=== PATIENT | female | born 1945 | race Caucasian/White ===

== ENCOUNTER 2017-10-15 09:58 | Inpatient (IN) | payer OTHER ==
[~2017-10-15] VITALS: Ht 157.5 cm; Wt 65.8 kg
--- NOTE | 2017-10-15 10:58 | ED CARDIAC/CP/PALPITATIONS ---
History of Present Illness General Chief Complaint: Chest Pain Stated Complaint: CP Source: patient, family, old records Exam Limitations: no limitations Vital Signs & Intake/Output Vital Signs & Intake/Output Vital Signs Date Time Temp Pulse Resp B/P B/P Pulse O2 O2 Flow FiO2 Mean Ox Delivery Rate 10/15 1611 59 17 118/74 99 Room Air 10/15 1511 97.3 62 17 130/82 100 Room Air 10/15 1424 97 Room Air 10/15 1406 98.7 54 20 144/82 98 Room Air 03/ 1355 98.2 70 20 182/86 03/ 1321 182/86 10/15 1233 180/96 03/ 1212 98.2 70 20 212/98 03/ 1141 212/98 03/ 1140 98.2 70 20 180/102 100 Room Air 10/15 1010 97.6 72 20 202/102 98 Room Air Allergies Coded Allergies: No Known Allergies (10/15/17) Reconcile Medications Calcium Carbonate/Vitamin D3 (Calcium 500 + D Tablet) 500 MG-400 TABLET 1 TAB PO BID SUPPLEMENT (Reported) Cyanocobalamin (Vitamin B-12) 1,000 MCG TABLET 1 TAB PO DAILY VITAMIN SUPPORT (Reported) [place]-3 Fatty Acids/Fish Oil (Fish Oil 1,000 MG Capsule) 340 MG-1,000 MG CAPSULE 1 CAP PO DAILY SUPPLEMENT (Reported) Triage Note: PT STATES SHE HAD A CHEST DISCOMFORT, BURNING SENSATION TODAY. STATES SHE WAS SITTING AT HER DESK WHEN IT HAPPENED. STATES SHE HAS BEEN EXPERIENCING BURNING AND BURPING MORE FREQUENTLY FOR THE PAST WEEK. TODAY IT WAS STRONGER. PT DENIES SOB Triage Nurses Notes Reviewed? yes Onset: Abrupt Duration: day(s): (1), constant Timing: recent history Quality/Severity: moderate, aching Radiation: no radiation Activities at Onset: none Nitro Today/Relief: no nitro taken today Aspirin Today: 325 mg x 1, provided by ED Associated Symptoms: DENIES HPI: 72-year-old female with no medical history presents with her family for evaluation complaining of one-week history of central nonradiating chest pressure and burning sensation that was worse this morning while at work. She states that she recently began a workout regimen and has been noticing while walking. She denies radiation of pain shortness of breath pain with inspiration leg swelling of abdominal pain nausea vomiting diarrhea. She is not taken anything for her symptoms. Fever chills cough. No blurry vision headache numbness tingling, no palpitations dizziness lightheadedness. No family history of sudden cardiac disease she does not smoke (Jose D Mae) Past History Travel History Traveled to [place] past 21 day No Medical History Any Pertinent Medical History? see below for history Surgical History Surgical History: nephrectomy Psychosocial History What is your primary language Belarusian Tobacco Use: Never used ETOH Use: denies use Illicit Drug Use: denies illicit drug use Family History Hx Contributory? No (Jose D Mae) Review of Systems Review of Systems Constitutional: Reports: see HPI. Comments Review of systems: See HPI, All other systems negative. Constitutional, no chills no fever, no malaise HEENT: no sore throat no congestion Cardiovascular: chest pain Skin: no rashes, no change in skin Respiratory: No dyspnea no cough no sputum GI: No nausea no vomiting, no diarrhea, : No dysuria No hematuria, no frequency Muscle skeletal: No joint pain, no back pain Neurologic: , no headache Heme/endocrine: No bruising Immunology: No lymphadenopathy (Jose D Mae) Physical Exam Physical Exam General Appearance: no apparent distress, alert, awake Cardiovascular: regular rate/rhythm Comments: Well-developed well-nourished person in no acute distress HEENT: Normal EENT exam; PERRL, EOMI, no pappiledema. HEAD is atraumatic. moist mucous membranes. Neck: Supple, normal range of motion Back: Full range of motion Cardiovascular: Regular rate and rhythms no murmurs rubs or gallops, normal JVP Respiratory: Chest nontender.There were no bony deformities, no asymmetry. No respiratory distress. Patient speaking in full complete sentences. Breath sounds clear to auscultation bilaterally: NO W/R/R Abdomen: Soft, nontender nondistended, no appreciable organomegaly. Normal bowel sounds. No rebound/guarding, Rectal: Heme negative stool. Extremity: No edema, full range of motion of extremities Neuro: Alert oriented x3, motor sensory normal, cranial nerves II through XII grossly intact. There were no obvious focal neurologic abnormalities. Skin: No appreciable rash on exposed skin, skin is warm and dry. Psych: Mood and affect is normal, memory and judgment is normal. Core Measures ACS in differential dx? Yes CVA/TIA Diagnosis No Sepsis Present: No Sepsis Focused Exam Completed? No (Goyo HERRERA,Jose D) Progress Differential Diagnosis: AMI, aortic dissection, atrial fibrillation, cholecystitis, myocarditis, pulmonary embolism, PVCs/PACs, unstable angina, V- fib/V-Tach Plan of Care: Orders Procedure Date/time Status CBC WITHOUT DIFFERENTIAL 10/16 0500 Active BASIC ELECTROLYTES PLUS BUN&CR 10/16 0500 Active TROPONIN LEVEL 10/16 0000 Active EKG 10/16 0000 Active Heart Healthy Diet 10/15 D Active TROPONIN LEVEL 10/15 1800 Active EKG 10/15 1800 Active URINALYSIS 10/15 1704 Active URINE DRUGS OF ABUSE 10/15 1610 Active URINE LYTES, SPOT 10/15 1610 Active Pathway - chart 10/15 1505 Active House Staff 10/15 1505 Active Patient Data 10/15 1505 Active Code Status 10/15 1505 Active ECHOCARDIOGRAM 10/15 1420 Active Add-on Test (ER Only) 10/15 1405 Active Patient Data 10/15 1356 Active Admit to inpatient 10/15 1332 Active THYROID STIMULATING HORMONE 10/15 1150 Active PARTIAL THROMBOPLASTIN TIME 10/15 1150 Complete PHOSPHORUS 10/15 1150 Active LIPID PANEL 10/15 1150 Active GLYCOSYLATED HGB 10/15 1150 Active D-DIMER 10/15 1150 Complete Telemetry/Manager Voice 10/15 1055 Active TROPONIN LEVEL 10/15 1055 Active PROTHROMBIN TIME 10/15 1055 Complete COMPREHENSIVE METABOLIC PANEL 10/15 1055 Active CBC WITHOUT DIFFERENTIAL 10/15 1055 Complete EKG 10/15 1000 Active Lab Add-on Test 10/15 UNK Active VTE Mechanical Prophylaxis 10/15 UNK Active Vital Signs 10/15 UNK Active Intake & Output 10/15 UNK Active Activity/Ambulation 10/15 UNK Active Current Medications Sig/Atilio Start time Last Medication Dose Stop Time Status Admin Aspirin 81 MG DAILY 10/16 1000 AC (Aspirin) Clopidogrel Bisulfate 75 MG DAILY 10/16 1000 AC (Plavix) Nitroglycerin 0.5 GM Q6 10/15 1800 AC (Nitro-Bid) Atorvastatin Calcium 80 MG 1700 10/15 1700 AC (Lipitor) Acetaminophen 650 MG Q6P PRN 10/15 1515 AC (Tylenol) Acetaminophen 1,000 MG Q6P PRN 10/15 1515 AC (Ofirmev) Morphine Sulfate 2 MG Q4P PRN 10/15 1515 AC (MORPHINE SULFATE) Ondansetron HCl 4 MG Q8P PRN 10/15 1515 AC (Zofran) Heparin Sodium/ 25,000 UNIT Q24H 10/15 1345 AC 10/15 Dextrose 10/16 1344 1417 (Heparin) Dextrose/Water 500 ML (D5W) Aspirin 81 MG ONCE ONE 10/15 1115 CAN (Aspirin) 10/15 1116 Laboratory Tests 10/15/17 1150: D-Dimer High Sensitivty Cancelled 10/15/17 1150: Anion Gap 13, Estimated GFR > 60, BUN/Creatinine Ratio 22.9, Glucose 95, Hemoglobin A1c Pending, Calcium 10.9 H, Phosphorus Pending, Total Bilirubin 0.6 , AST 36, ALT 22, Alkaline Phosphatase 76, Troponin I 0.42 *H, Total Protein 7.9 , Albumin 4.6, Globulin 3.3, Albumin/Globulin Ratio 1.4, Triglycerides 207 H, Cholesterol 213 H, LDL Cholesterol, Calc 117, HDL Cholesterol 55, Cholesterol/ HDL Ratio 4, TSH Pending, PT 10.7, INR 0.98, APTT 35, D-Dimer High Sensitivty < 200, CBC w Diff NO MAN DIFF REQ, RBC 4.90, MCV 88.4, MCH 29.7, MCHC 33.6, RDW 13.4, MPV 8.9, Gran % 62.7, Lymphocytes % 31.7, Monocytes % 4.4, Eosinophils % 0.6, Basophils % 0.6, Absolute Granulocytes 5.4, Absolute Lymphocytes 2.7, Absolute Monocytes 0.4, Absolute Eosinophils 0.1, Absolute Basophils 0.1 PT RESTING IN NAD, MED WITH ASA 325MG PO, patient denies pain. 1310 and discussed with the patient and her family at length all of her lab results and troponin level. She denies pain call placed to cardiology case discussed with Dr. Menard case d/w dr carrasquillo, plavix load, heparin gtt, nitro ordered, joann will be admitted to icu, Discussed with the patient and her family at the plan of care and lab results in agreement with plan and admission to the ICU she currently denies any symptoms at this time Diagnostic Imaging: Viewed by Me: Radiology Read. Discussed w/RAD: Radiology Read. Radiology Impression: PATIENT: JOANN HARRISON PRESENT AGE: 72 PATIENT ACCOUNT NO: [id number] : 44 LOCATION: [facility] ORDERING PHYSICIAN: Jose D HERRERA SERVICE DATE: 10/15/17 EXAM TYPE: RAD - XRY- PORTABLE CHEST XRAY EXAMINATION: XR PORTABLE CHEST CLINICAL INFORMATION: Chest pain. COMPARISON: None TECHNIQUE: Portable frontal view of the chest was obtained. FINDINGS: The cardiac silhouette is normal in size. There is atherosclerotic calcification of the aorta. There is no lobar consolidation. No pneumothorax or pleural effusion. No acute osseous abnormality. IMPRESSION: No acute cardiopulmonary disease. DICTATED BY: Feliz Powell MD DATE/TIME DICTATED :10/15/171233 DIP GUIDER STOVES:FIDEL DATE/TIME TRANSCRIBED:10/15/171233 CONFIDENTIAL, DO NOT COPY WITHOUT APPROPRIATE AUTHORIZATION. < Electronically signed in Other Vendor System> SIGNED BY: Feliz Powell MD 10/15/171238 Initial ED EKG: normal intervals, normal p-waves, normal QRS complex, normal sinus rhythm Rhythm Strip: normal sinus rhythm (Jose D Mae) Departure Departure Time of Disposition: 3 Disposition: STILL A PATIENT Condition: Stable Clinical Impression Primary Impression: NSTEMI (non-ST elevated myocardial infarction) Referrals: Jadon Wheatley MD (PCP/Family) Departure Forms: Customer Survey General Discharge Information Admission Note Spoke With: Wiley ROJAS PHD,Naman Kc Documentation of Exam: Documentation of any treatments & extenuating circumstances including Concerns Regarding Discharge (functional status, medication knowledge or non-compliance, living conditions, etc.) that warrant an admission rather than observation cardiology consultation labs troponin echocardiogram premature discharge would medically harmful (Jose D Mae) PA/CHICKEN STUFFER Co-Sign Statement Statement: ED Attending supervision documentation- x I saw and evaluated the patient. I have also reviewed all the pertinent lab results and diagnostic results. I agree with the findings and the plan of care as documented in the PA's/CHICKEN STUFFER's documentation. CP, + troponin, NSTEMI [] I have reviewed the ED Record and agree with the PA's/CHICKEN STUFFER's documentation. [] Additions or exceptions (if any) to the PAs/CHICKEN STUFFER's note and plan are summarized below: [] (Derian ROJAS,Dennis) Critical Care Note Critical Care Note Critical Care Time: 30-74 min (Jose D Mae)
[2017-10-15] MEDS ORDERED: VITAMIN B-121000 MC3 PO (11:51)
[2017-10-15] MEDS ORDERED: CALCIUM 500 +1 EAC5 PO (11:51)
[2017-10-15] MEDS ORDERED: FISH OIL 1,0001 EACH PO (11:52)
[2017-10-15 12:14] LABS: ABSOLUTE BASOPHIL COUNT 0.1 /CUMM (0.0-0.2); ABSOLUTE EOSINOPHIL COUNT 0.1 /CUMM (0.0-0.7); ABSOLUTE GRANULOCYTE CT 5.4 /CUMM (1.4-6.5); ABSOLUTE LYMPH COUNT 2.7 /CUMM (1.2-3.4); ABSOLUTE MONOCYTE COUNT 0.4 /CUMM (0.10-0.60); BASOPHIL % 0.6 % (0.0-2.0); EOSINOPHIL % 0.6 % (0-5); GRANULOCYTE % 62.7 % (42.2-75.2); HEMATOCRIT 43.3 % (37-47); MEAN CORPUSCULAR HGB 29.7 PG (27.0-31.0); MEAN CORPUSCULAR HGB CONC 33.6 G/DL (33.0-37.0); MEAN CORPUSCULAR VOLUME 88.4 FL (81.0-99.0); MEAN PLATELET VOLUME 8.9 FL (7.4-10.4); PLATELET COUNT 246 /CUMM (130-400); RBC DISTRIBUTION WIDTH 13.4 % (11.5-14.5); WHITE BLOOD CELL COUNT 8.6 /CUMM (4.8-10.8)
[2017-10-15 12:37] LABS: PT 10.7 SEC (9.4-12.5)
--- NOTE | 2017-10-15 12:39 | RADIOLOGY REPORT ---
EXAMINATION: XR PORTABLE CHEST CLINICAL INFORMATION: Chest pain. COMPARISON: None TECHNIQUE: Portable frontal view of the chest was obtained. FINDINGS: The cardiac silhouette is normal in size. There is atherosclerotic calcification of the aorta. There is no lobar consolidation. No pneumothorax or pleural effusion. No acute osseous abnormality. IMPRESSION: No acute cardiopulmonary disease.
--- NOTE | 2017-10-15 14:15 | History & Physical ---
General Information and HPI MD Statement: I have seen and personally examined JOANN HARRISON and documented this H&P. The patient is a 72 year old F who presented with a patient stated chief complaint of [Chest pain]. Source of Information: patient, family, old records Exam Limitations: no limitations History of Present Illness: This is a 72 yo female with no known past medical history but pertient surgical history for right nephrectomy for "swelling" over 30 yrs ago, who comes in for CC of chest pain. Per patient this AM around 8-8:30 AM she had l. sided 7/10 non radiating chest pain that was described as "an annoying ache" which was associated with dizziness and lasted for 30min. She has never had this type of pain to this intensity before. She does endorse some intermittent chest pain over the past week or two. It has been increasing in frequency as she had one episode on Sun and at least 2-3 more episodes on Sunday. These episodes were fleeting and not associated with exertion. She did get sublingual nitro in hospital today but she said her chest pain went away before administration of nitro so she couldn't say if it alleviated her pain. She does endorse worsening heart burn for the past week and describes it as a burining epigastric pain. She initially confused her chest pain over the weekend as epigastric pain and attempted to take tums to alleviate the discomfort. She had one episode of palpitations about 3-4 weeks ago associated with an emotional disturbance. She recently began going to the gym one month ago and has noted only one episode of chest pain when she over exerted herself on the treadmill. Otherwise at her normal brisk walk she has not noted chest pain. She does not take any medications other than vitamins. Denies drinking, smoking or IVDA. No fam hx of CAD or suden cardiac . Surgical hx pertienet for nephrectomy in her thirties. Denies LAO, N, V, D, abd pain, palpitations, SOB, change in vision, swelling in LE or orthopnea. Allergies/Medications Allergies: Coded Allergies: No Known Allergies (10/15/17) Home Med list Calcium Carbonate/Vitamin D3 (Calcium 500 + D Tablet) 500 MG-400 TABLET 1 TAB PO BID SUPPLEMENT (Reported) Cyanocobalamin (Vitamin B-12) 1,000 MCG TABLET 1 TAB PO DAILY VITAMIN SUPPORT (Reported) [place]-3 Fatty Acids/Fish Oil (Fish Oil 1,000 MG Capsule) 340 MG-1,000 MG CAPSULE 1 CAP PO DAILY SUPPLEMENT (Reported) Compliance With Home Meds: GOOD Past History Travel History Traveled to [place] past 21 day No Surgical History Surgical History: nephrectomy Past Family/Social History Psychosocial History ETOH Use: denies use Illicit Drug Use: denies illicit drug use Review of Systems Review of Systems Constitutional: Denies: chills, fever, malaise, weakness. EENTM: Denies: blurred vision, double vision, visual changes, ear pain. Cardiovascular: Reports: chest pain. Denies: edema, orthopena, palpitations, peripheral edema. Respiratory: Denies: cough, hemoptysis, short of breath. GI: Denies: abdominal pain, distention, nausea, vomiting. Genitourinary: Denies: discharge, pain. Musculoskeletal: Denies: back pain. Exam & Diagnostic Data Last 24 Hrs of Vital Signs/I&O Vital Signs Date Time Temp Pulse Resp B/P B/P Pulse O2 O2 Flow FiO2 Mean Ox Delivery Rate 10/15 1424 97 Room Air 03/ 1406 98.7 54 20 144/82 98 Room Air 03/ 1355 98.2 70 20 182/86 03/05 1321 182/86 03/05 1233 180/96 03/05 1212 98.2 70 20 212/98 03/05 1141 212/98 03/05 1140 98.2 70 20 180/102 100 Room Air 03/05 1010 97.6 72 20 202/102 98 Room Air Intake & Output / 1600 / 0800 03/ 0000 Intake Total 60 Output Total Balance 60 Intake, IV 60 Patient 64.41 kg Weight Weight Reported by Patient Measurement Method Physical Exam General Appearance Alert, Oriented X3, Cooperative, No Acute Distress Skin No Significant Lesion HEENT Atraumatic, PERRLA, EOMI, Mucous Membr. moist/pink Neck Supple, NO JVD noted Cardiovascular grade 2 systolic murmurat RUSB Lungs Clear to Auscultation, Normal Air Movement Abdomen Soft, No Tenderness, has old scar on r. side of abdomen Neurological Normal Speech Extremities No Edema Last 24 Hrs of Labs/Marvel: Laboratory Tests 10/15/17 1150: D-Dimer High Sensitivty Cancelled 10/15/17 1150: Anion Gap 13, Estimated GFR > 60, BUN/Creatinine Ratio 22.9, Glucose 95, Calcium 10.9 H, Total Bilirubin 0.6, AST 36, ALT 22, Alkaline Phosphatase 76, Troponin I 0.42 *H, Total Protein 7.9, Albumin 4.6, Globulin 3.3, Albumin/Globulin Ratio 1.4, PT 10.7, INR 0.98, APTT 35, D-Dimer High Sensitivty < 200, CBC w Diff NO MAN DIFF REQ, RBC 4.90, MCV 88.4, MCH 29.7, MCHC 33.6, RDW 13.4, MPV 8.9, Gran % 62.7, Lymphocytes % 31.7, Monocytes % 4.4, Eosinophils % 0.6, Basophils % 0.6, Absolute Granulocytes 5.4, Absolute Lymphocytes 2.7, Absolute Monocytes 0.4, Absolute Eosinophils 0.1, Absolute Basophils 0.1 Assessment/Plan Assessment: This is a 72 yo female with no known past medical history but pertient surgical history for right sided nephrectomy for "swelling" over 30 yrs ago, who comes in for CC of chest pain. Pt was found to be hypertensive up to 202/102 with elevated trop of .42 and EKG with diffuse ST depressions. Pt does not have any previous cardiac history and describes an atypical chest pain but with evidence of myocardia ischemia. Suspect that her hypertension is causing increased afterload and decreased coronary artery perfusion thereby causing demand ischemia. JIGNESH score for NSTEMI is 5 suggesting 26.2% 14-day risk of /recurrent PA or urgent revascularization. Etiology of hypertension is unclear as pt states she is compliant with medical care and never recieved dx of htn. Given nephrectomy will also have to consider renovascular etiology or worsening of undiagnosed essential hypertension. Will admit to ICU for further work up and management. PLAN 1. Hypertensive Emergency: Pt meets criteria given chest pain with BP 202/102 and elevated troponin as evidence of end organ damage. Pt does not have prev dx of htn. DDX: renovascular etiology given prev hx of nephrectomy, or progression of previously undiagnosed essential HTN. Pt got IV lopressor and IV labetalol in ED with BP dropping to 144/82. At this time will avoid addl' agents as too precipitous of a drop may not be tolerated very well. Pt is currently not on any PO anti-hypertensive regimen. Will continue to monitor her Bp and manage accordingly. * Will decrease MAP around 25% and DBP goal <110 in the next few hours. * Monitor urine output * Check urine lytes * Utox * Check TSH NSTEMI: JIGNESH score 5 suggesting 26.2% 14-day risk of /recurrent PA or urgent revascularization. Pt has elevated trops and ST segment depression. Going by history her pain does not sound classically exertional and pt doesn't have any known classic risk factors of CAD. Will do further work up. * Heparin drip * ASA 325 once and 81 daily * Plavix 75 * EKG and Trop at 6pm and midnight * Echocardiogram * Cholesterol planel * Hi-intensity statin onboard as LFT WNL * HBA1C Hypercalcemia:Her Ca on admission was 10.9. Pt states that she takes two supplements every day. Will hold Ca supplementation. Unsure if renal etiology associate with her hypercal. * Check PTH * Hold home supplements FC HEART HEALTHY DIET HEPARIN PPX As Ranked By This Provider Problem List: 1. NSTEMI (non-ST elevated myocardial infarction) Core Measures/Misc (04/29) Acute Coronary Syndrome ACS Diagnosis: Yes Congestive Heart Failure Congestive Heart Failure Diagnosis No Cerebrovascular Accident CVA/TIA Diagnosis: No VTE (View Protocol) VTE Risk Factors Acute Medical Illness No Mechanical VTE Prophylaxis d/t N/A MechProphylax Ordered No VTE Pharm Prophylaxis d/t NA PharmProphylax ordered Sepsis (View protocol) Sepsis Present: No
[2017-10-15 14:16] LABS: PTT 35 SEC (25-37)
--- NOTE | 2017-10-15 18:56 | Cons- Cardiology ---
General Information and HPI Consulting Request Date of Consult: 10/15/17 Requested By: ER History of Present Illness: Joann is a 72 year old female with history of prior kidney resection who presents for evaluation of chest pain. At her baseline, she is very active and routinely walks briskly on a treadmill. Over the past few days this patient has noted exertional chest discomfort on the treadmill. This morning, after arriving at work, she noted a chest discomfort with mild activity such as walking. The discomfort is described as a moderate chest tightness with some radiation to her right shoulder and possibly to her back. The discomfort is associated with diaphoresis, shortness of breath and lightheadedness. She also recalls one episode of palptiations. At its most severe this discomfort lasted about 10 minutes but then lingered on a while longer at a more mild level. At present, the patient is completely comfortable. Cardiac enzymes show an elevated troponin and the patient has ischemic ST depressions on her ECG. The patient was severely hypertensive upon admission. Allergies/Medications Allergies: Coded Allergies: No Known Allergies (10/15/17) Home Med List: Calcium Carbonate/Vitamin D3 (Calcium 500 + D Tablet) 500 MG-400 TABLET 1 TAB PO BID SUPPLEMENT (Reported) Cyanocobalamin (Vitamin B-12) 1,000 MCG TABLET 1 TAB PO DAILY VITAMIN SUPPORT (Reported) [place]-3 Fatty Acids/Fish Oil (Fish Oil 1,000 MG Capsule) 340 MG-1,000 MG CAPSULE 1 CAP PO DAILY SUPPLEMENT (Reported) Review of Systems Review of Systems: A twelve point review of systems is unremarkable. Past History Travel History Traveled to [place] past 21 day No Medical History Cardiovascular: hypertension Surgical History Surgical History: nephrectomy Family History Family History Reviewed? No premature CAD. Mother: of pancreatic cancer. Father: with dementia and possible Parkinson's disease Psychosocial History Smoking Status: Former Smoker (Quit over 30 years ago) ETOH Use: denies use Illicit Drug Use: denies illicit drug use Exam & Diagnostic Data Vital Signs and I&O Vital Signs Date Time Temp Pulse Resp B/P B/P Pulse O2 O2 Flow FiO2 Mean Ox Delivery Rate 10/15 1738 110/76 10/15 1611 59 17 118/74 99 Room Air 10/15 1511 97.3 62 17 130/82 100 Room Air 10/15 1424 97 Room Air 10/15 1406 98.7 54 20 144/82 98 Room Air 10/15 1355 98.2 70 20 182/86 03/ 1321 182/86 03/ 1233 180/96 03/ 1212 98.2 70 20 212/98 03/ 1141 212/98 03/ 1140 98.2 70 20 180/102 100 Room Air 03/ 1010 97.6 72 20 202/102 98 Room Air Intake & Output 10/15 1600 10/15 0800 10/15 0000 / 1600 10/14 0800 10/14 0000 Intake Total 60 Output Total Balance 60 Intake, IV 60 Patient 142 lb Weight Weight Reported by Patient Measurement Method Physical Exam: General: WD/WN female in NAD; alert and oriented x 3 HEENT: NC/AT, PERRL, EOMI Neck: no JVD, no carotid bruits Heart: RRR with 2/6 systolic murmur Lungs: clear bilaterally Abdomen: soft, NT, +ve bowel sounds Extremities: no edema Assessment/Plan Assessment/Plan * This patient has evidence of a NSTEMI that is most likely related to coronary artery disease but may possibly be due to a severe hypertensive excursion. We will begin full anticoagulation with IV heparin, aspirin 325mg daily and Plavix 75mg daily after loading with 300mg. Begin Atorvastatin 80mg daily and NTG paste 1/2 inch Q 6 hours or as tolerated by blood pressure. Continue supplemental oxygen. Follow cardiac enzymes until they peak. If recurrent chest pain we will have a low threshold for emergent cardiac catheterization. * Hypertension. This patient responded well to labetolol in regard to her blood pressure which gave a greater than desired acute blood pressure reduction. Begin Metoprolol 25mg BID which will not have the alpha blocking effect of that labetolol has and should help to control her heart rate without excessive blood pressure drop. The patient should be on a low sodium diet. Obtain a renal ultrasound. The patient has a unilateral kidney. * Obtain an echocardiogram. Consult Acknowledgment - Thank you for your consult request.
[2017-10-15 19:00] VITALS: BP 160/90
[2017-10-15 22:12] LABS: PTT 84 SEC (25-37)
[2017-10-16] VITALS: BP 100/60
--- NOTE | 2017-10-16 03:02 | Event Note ---
Event Note Event Note: S: Rising troponins B: Troponins rising from 2.10 to 3.99 A/R: Contacted Dr. Jama regarding rising troponins. Troponins patti from 2.10 to 3.99. He suggested the keep the patient NPO as prepartion for possible cardiac catherization tomorrow.
[2017-10-16 06:31] LABS: ABSOLUTE BASOPHIL COUNT 0 /CUMM (0.0-0.2); ABSOLUTE EOSINOPHIL COUNT 0.1 /CUMM (0.0-0.7); ABSOLUTE LYMPH COUNT 3.1 /CUMM (1.2-3.4); ABSOLUTE MONOCYTE COUNT 0.6 /CUMM (0.10-0.60); BASOPHIL % 0.5 % (0.0-2.0); EOSINOPHIL % 0.7 % (0-5); GRANULOCYTE % 61.4 % (42.2-75.2); MEAN CORPUSCULAR HGB 29.6 PG (27.0-31.0); MEAN CORPUSCULAR HGB CONC 33.9 G/DL (33.0-37.0); MEAN CORPUSCULAR VOLUME 87.2 FL (81.0-99.0); MEAN PLATELET VOLUME 8.6 FL (7.4-10.4); PLATELET COUNT 220 /CUMM (130-400); RBC DISTRIBUTION WIDTH 13.3 % (11.5-14.5); RED BLOOD CELL CT 4.29 /CUMM (4.20-5.40); WHITE BLOOD CELL COUNT 9.8 /CUMM (4.8-10.8)
[2017-10-16 06:35] LABS: HEMATOCRIT 37.4 % (37-47)
--- NOTE | 2017-10-16 07:55 | Discharge Summary ---
Visit Information Visit Dates Admission Date: 10/15/17 Discharge Date: 10/16/2017 Hospital Course Course Attending Physician: Dr. Jama Primary Care Physician: Corry ROJAS,Jadon Juarez Consulting Request: Consulting Specialty: Cardiology Hospital Course: This is a 72 yo relatively active female with no known PMH but surgical hx of nephrectomy over 30 yrs ago who comes in for CC chest pain. Initially CP was associated with exertion but has been occurring more frequently even at rest. On day of admission she had 7/10 non radiating l. sided, non-reproducible chest pain associated for 30 minutes with dizziness and diaphoresis. She does not take any medications other than vitamins. Denies drinking, smoking or IVDA. No fam hx of CAD or suden cardiac . Surgical hx pertinent for nephrectomy in her thirties. Denies LAO, N, V, D, abd pain, palpitations, SOB, change in vision, swelling in LE or orthopnea. She does not note any difference in symptoms with nitro. During ED work up she was found to be hypertensive up to 202/102 with elevated trop of .42 and EKG with diffuse ST depressions. JIGNESH score for NSTEMI is 5 suggesting 26.2% 14-day risk of /recurrent AZ or urgent revascularization. Overnight her troponin continued to trend upward and went from .42-->2.10-->3.99 --> 3.64. She denied any further episdoes of chest pain overnight. Seen for the following problems. 1. Hypertensive Emergency: Pt meets criteria given chest pain with BP 202/102 and elevated troponin as evidence of end organ damage. Pt does not have prev dx of htn. DDX: renovascular etiology given prev hx of nephrectomy, or progression of previously undiagnosed essential HTN. Pt is currently not on any PO anti-hypertensive regimen. Utox negative. UA negative. TSH WNL. Urine sodium elevated. * started on lopressor 25 mg po bid NSTEMI: JIGNESH score 5 suggesting 26.2% 14-day risk of /recurrent AZ or urgent revascularization. Pt has elevated trops and ST segment depression. * Started on Heparin drip * ASA 325 once and 81 daily * Plavix 300 load and 75mg daily * Cholesterol planel shows Tchol 213,TG 207, LDL 117. Hi-intensity statin onboard as LFT WNL * HBA1C PENDING * Echocardiogram PENDING Hypercalcemia:Her Ca on admission was 10.9. Pt states that she takes two supplements every day. Will hold Ca supplementation. Unsure if renal etiology associate with her hypercal. * PTH pending * Hold home supplements FC NPO HEPARIN DRIP FOR PPX Allergies: Coded Allergies: No Known Allergies (10/15/17) Pertinent Lab Results: Laboratory Tests 10/16/17 0600: Troponin I Cancelled 10/16/17 0600: Anion Gap 10, Estimated GFR > 60, BUN/Creatinine Ratio 21.3, Troponin I 3.64 *H, PTH Intact Pending, CBC w Diff NO MAN DIFF REQ, RBC 4.29, MCV 87.2, MCH 29.6, MCHC 33.9, RDW 13.3, MPV 8.6, Gran % 61.4, Lymphocytes % 31.5, Monocytes % 5.9, Eosinophils % 0.7, Basophils % 0.5, Absolute Granulocytes 6.0, Absolute Lymphocytes 3.1, Absolute Monocytes 0.6, Absolute Eosinophils 0.1, Absolute Basophils 0 10/16/17 0000: Troponin I 3.99 *H 10/15/172119: Urine Color YEL, Urine Clarity CLEAR, Urine pH 7.0, Ur Specific Adel 1.015, Urine Protein NEG, Urine Ketones NEG, Urine Nitrite NEG, Urine Bilirubin NEG, Urine Urobilinogen 0.2, Ur Leukocyte Esterase NEG, Ur Microscopic EXAM NOT REQUIRED, Urine Hemoglobin NEG, Urine Glucose NEG 10/15/172119: APTT 84 H, Urine Opiates Screen < 100, Methadone Screen < 40, Barbiturate Screen < 60, Ur Phencyclidine Scrn < 6.00, Amphetamines Screen < 100, U Benzodiazepines Scrn < 85, Urine Cocaine Screen < 50, Urine Cannabis Screen < 5.00, Ur Random Creatinine 53.6, Ur Random Sodium 100 H, Ur Random Potassium 35.6, Fraction Sodium Excret 0.9 10/15/17 1801: Troponin I 2.10 *H 10/15/17 1150: D-Dimer High Sensitivty Cancelled 10/15/17 1150: Anion Gap 13, Estimated GFR > 60, BUN/Creatinine Ratio 22.9, Glucose 95, Hemoglobin A1c Pending, Calcium 10.9 H, Phosphorus 3.5, Total Bilirubin 0.6, AST 36, ALT 22, Alkaline Phosphatase 76, Troponin I 0.42 *H, Total Protein 7.9, Albumin 4.6, Globulin 3.3, Albumin/Globulin Ratio 1.4, Triglycerides 207 H, Cholesterol 213 H, LDL Cholesterol, Calc 117, HDL Cholesterol 55, Cholesterol/ HDL Ratio 4, TSH 2.390, PT 10.7, INR 0.98, APTT 35, D-Dimer High Sensitivty < 200, CBC w Diff NO MAN DIFF REQ, RBC 4.90, MCV 88.4, MCH 29.7, MCHC 33.6, RDW 13.4, MPV 8.9, Gran % 62.7, Lymphocytes % 31.7, Monocytes % 4.4, Eosinophils % 0.6, Basophils % 0.6, Absolute Granulocytes 5.4, Absolute Lymphocytes 2.7, Absolute Monocytes 0.4, Absolute Eosinophils 0.1, Absolute Basophils 0.1 Vital Signs Date Time Temp Pulse Resp B/P B/P Pulse O2 O2 Flow FiO2 Mean Ox Delivery Rate 10/16 0400 94 Room Air / 0000 95 Room Air / 0000 98.6 56 18 100/60 95 Room Air 03/05 1900 96 Room Air 03/05 1900 99.5 64 16 160/90 96 Room Air 03/05 1738 110/76 03/05 1611 59 17 118/74 99 Room Air 03/05 1511 97.3 62 17 130/82 100 Room Air 03/05 1424 97 Room Air 03/05 1406 98.7 54 20 144/82 98 Room Air 03/05 1355 98.2 70 20 182/86 03/05 1321 182/86 03/05 1233 180/96 03/05 1212 98.2 70 20 212/98 03/05 1141 212/98 03/05 1140 98.2 70 20 180/102 100 Room Air 03/05 1010 97.6 72 20 202/102 98 Room Air Disposition Summary Disposition Principal Diagnosis: NSTEMMI Additional Diagnosis: HYPERTENSIVE EMERGENCY Discharge Disposition: other general hospital Discharge Instructions General Discharge Information Code Status: Full Code Patient's Diet: NPO Patient's Activity: TOLERATED Follow-Up Instructions/Appts: FOLLOW UP ECHOCARDIOGRAM AND AN HBA1C Medications at Discharge Discharge Medications: Stop taking the following medications: Calcium Carbonate/Vitamin D3 (Calcium 500 + D Tablet) 500 MG-400 TABLET ORAL TWICE DAILY Continue taking these medications: Cyanocobalamin (Vitamin B-12) 1,000 MCG TABLET 1 Tablet ORAL DAILY [place]-3 Fatty Acids/Fish Oil (Fish Oil 1,000 MG Capsule) 340 MG-1,000 MG CAPSULE 1 Capsule ORAL DAILY Start taking the following new medications: Clopidogrel Bisulfate (Plavix) 75 MG TABLET 75 Milligram ORAL DAILY Qty = 30 No Refills Atorvastatin Calcium (Atorvastatin Calcium) 80 MG TABLET 80 Milligram ORAL 5 PM Qty = 30 No Refills Nitroglycerin (Nitro-Bid) 2 % OINT...G. 0.5 Gram On the skin EVERY SIX HOURS as needed for CHEST PAIN Qty = 3 No Refills Metoprolol Tartrate (Metoprolol Tartrate) 25 MG TABLET 1 Tablet ORAL TWICE DAILY Qty = 60 No Refills Aspirin (Aspirin*) 325 MG TABLET 325 Milligram ORAL DAILY Qty = 30 No Refills Copies To: Corry ROJAS,Jadon Juarez
[2017-10-16 08:00] VITALS: BP 100/56
[2017-10-16] MEDS ORDERED: PLAVIX75 M1 PO (08:00)
[2017-10-16] MEDS ORDERED: METOPROLOL TART25 M1 PO (08:00)
[2017-10-16] MEDS ORDERED: NITRO-BID1 GM TOP (08:00)
[2017-10-16] MEDS ORDERED: ASPIRIN325 M2 PO (08:00)
[2017-10-16] MEDS ORDERED: ATORVASTATIN CA80 M1 PO (08:00)
--- NOTE | 2017-10-16 08:02 | Patient Discharge Instructions ---
Discharge Instructions General Discharge Information You were seen/treated for: CHEST PAIN You had these procedures: TRANSFER FOR CATH Watch for these problems: CHEST PAIN SHORTNESS OF BREATH DIZZINESS Special Instructions: FOLLOW UP WITH DR. JACK Torres Recommended Diet: Heart Healthy Activity Full Activity/No Limits: No Activity Self Limited: Yes Acute Coronary Syndrome Inclusion Criteria At DC or during hospital stay patient has or had the following: ACS DIAGNOSIS Yes Discharge Core Measures Meds if any: Prescribed or Continued at Discharge Meds if any: NOT Prescribed or Continued at Discharge Congestive Heart Failure Inclusion Criteria At DC or during hospital stay patient has or had the following: CHF DIAGNOSIS No Discharge Core Measures Meds if any: Prescribed or Continued at Discharge Meds if any: NOT Prescribed or Continued at Discharge Cerebrovascular accident Inclusion Criteria At DC or during hospital stay patient has or had the following: CVA/TIA Diagnosis No Discharge Core Measures Meds if any: Prescribed or Continued at Discharge Meds if any: NOT Prescribed or Continued at Discharge Venous thromboembolism Inclusion Criteria VTE Diagnosis No Discharge Core Measures - Per Current guidelines, there needs to be overlap - treatment for the first 5 days of Warfarin therapy. - If discharged on Warfarin prior to 5 days of - overlap therapy, the patient will need to be - assessed for post discharge needs including - *Post discharge parental anticoagulation - *Warfarin and/or parental anticoagulation education - *Follow up date to check INR post discharge Meds if any: Prescribed or Continued at Discharge Note: Overlap Therapy is Warfarin and Anticoagulant Meds if any: NOT Prescribed or Continued at Discharge
[2017-10-16 10:06] VITALS: BP 99/52
[2017-10-16 10:47] LABS: PTT 56 SEC (25-37)
--- NOTE | 2017-10-16 19:02 | ECHOCARDIOGRAM REPORT ---
JOANN HARRISON Age: 72 : 1945 Gender: F Exam Date: 10/15/2017 19:21 Exam Location: [facility] Ht (in): 62 Wt (lb): 142 BSA: 1.69 BP: 165 / 95 Ordering Physician: Ashlee Caban MD Referring Physician: Naman Jama MD, PhD Technologist: Sherry Byers [facility] Room Number: 110 Indications: CHEST PAIN Rhythm: Sinus Technical Quality: fair FINDINGS Left Ventricle Normal left ventricular size, wall thickness and systolic function with no obvious regional wall motion abnormalities. Normal left ventricular diastolic filling pattern for age. The ejection fraction is visually estimated at 70%. Right Ventricle The right ventricle is normal in size and function. Right Atrium The right atrium is normal in size. Left Atrium The left atrium is normal in size. The interatrial septum is intact. Mitral Valve The mitral valve demonstrates mild prolapse of the anterior leaflet with normal function. There is mild mitral regurgitation. Aortic Valve Mildly thickened and sclerotic aortic valve without significant stenosis. There is no aortic regurgitation. Tricuspid Valve The tricuspid valve is normal in structure and function. There is trace tricuspid regurgitation. Pulmonary artery systolic pressure is normal. Pulmonic Valve Structurally normal pulmonic valve. There is no pulmonic regurgitation. Pericardium Normal pericardium with trace effusion. No pleural effusion. Great Vessels Normal aortic root dimension. The aortic arch and great vessels are well seen and are normal. CONCLUSIONS 1. Normal EF of 70%. 2. Mild prolapse of anterior mitral valve leaflet with mild mitral regurgitation. 3. Trace tricuspid regurgitation. 4. Trace pericardial effusion. Naman Jama M.D. (Electronically Signed) Final Date: 16 October 2017 19:02 MEASUREMENTS (Male / Female) Normal Values 2D ECHO LV Diastolic Diameter PLAX 4.4 cm 4.2 - 5.9 / 3.9 - 5.3 cm LV Systolic Diameter PLAX 2.3 cm 2.1 - 4.0 cm LV Fractional Shortening PLAX 47.7 % 25 - 46 % LV Ejection Fraction 2D Teich 79.3 % IVS Diastolic Thickness 1.1 cm LVPW Diastolic Thickness 1.1 cm LV Relative Wall Thickness 0.5 RV Internal Dim ED PLAX 3.1 cm 1.9 - 3.8 cm LVOT Diameter 1.8 cm Aortic Root Diameter 2.7 cm LA Systolic Diameter LX 3.7 cm 3.0 - 4.0 / 2.7 - 3.8 cm LA Volume 46.0 cm 18 - 58 / 22 - 52 cm Ascending Aorta Diameter 3.1 cm DOPPLER AV Peak Velocity 181.0 cm/s AV Peak Gradient 13.1 mmHg AV Mean Velocity 115.0 cm/s AV Mean Gradient 6.0 mmHg AV Velocity Time Integral 40.5 cm LVOT Peak Velocity 97.8 cm/s LVOT Peak Gradient 3.8 mmHg LVOT Mean Velocity 59.5 cm/s LVOT Mean Gradient 2.0 mmHg LVOT Velocity Time Integral 24.5 cm LVOT Stroke Volume 62.3 cm AV Area Cont Eq vti 1.5 cm AV Area Cont Eq pk 1.4 cm MV Peak Velocity 95.6 cm/s MV Peak Gradient 3.7 mmHg MV Mean Velocity 49.7 cm/s MV Mean Gradient 1.0 mmHg Mitral E Point Velocity 79.0 cm/s Mitral A Point Velocity 84.4 cm/s Mitral E to A Ratio 0.9 MV PHT Velocity 97.0 cm/s MV Deceleration Ritchie 446.0 cm/s MV Pressure Half Time 65.2 ms MV Area PHT 3.4 cm MV Deceleration Time 230.0 ms TR Peak Velocity 240.0 cm/s TR Peak Gradient 23.0 mmHg Right Atrial Pressure 5.0 mmHg Pulmonary Artery Systolic Pressu 28.0 mmHg Right Ventricular Systolic Press 28.0 mmHg PV Peak Velocity 102.0 cm/s PV Peak Gradient 4.2 mmHg PV Mean Velocity 69.3 cm/s PV Mean Gradient 2.0 mmHg PV Velocity Time Integral 23.4 cm LV E' Lateral Velocity 7.9 cm/s Mitral E to LV E' Lateral Ratio 10.0 LV E' Septal Velocity 5.3 cm/s Mitral E to LV E' Septal Ratio 15.0
== END 2017-10-16 11:35 | disposition short-term general hospital (02) | DRG 282 ==
LOC: ERH 09:58 → CRI 13:32 → ERHI 13:32 → ENRESERV 15:45 → ENTRNSPT 18:25 → CRI 19:08 → CMPTRNSPT 19:32 → ENPENDDIS 10-16 08:24 → CRI 10-16 11:35
PROVIDERS: Internal Medicine; Internal Medicine Interventional Cardiology; Physician Assistant Medical; Student in an Organized Health Care Education/Training Program
DX: I21.4 Non-ST elevation (NSTEMI) myocardial infarction (principal); E83.52 Hypercalcemia; I16.0 Hypertensive urgency; Z90.5 Acquired absence of kidney
CPT/HCPCS: 84133; 84300; CCU; 36415; 36592; 71045; 80307; 81003; 82436; 82570; 93005; 93010; 93306; 96374; 96375; 99291; J1644; J3490

== ENCOUNTER 2017-10-30 23:25 | Emergency (ER) | payer OTHER ==
[~2017-10-30] VITALS: Ht 157.5 cm; Wt 64.0 kg
[~2017-10-30 23:25] MED LIST: ASPIRIN325 M2 PO; ATORVASTATIN CA80 M1 PO; CALCIUM 500 +1 EAC5 PO; FISH OIL 1,0001 EACH PO; METOPROLOL TART25 M1 PO; NITRO-BID1 GM TOP; PLAVIX75 M1 PO; VITAMIN B-121000 MC3 PO
--- NOTE | 2017-10-31 00:20 | ED CARDIAC/CP/PALPITATIONS ---
History of Present Illness General Chief Complaint: Palpitations Stated Complaint: " CHEST PALPITATIONS W83ODEN AGO" Source: patient Exam Limitations: no limitations Vital Signs & Intake/Output Vital Signs & Intake/Output Vital Signs Date Time Temp Pulse Resp B/P B/P Pulse O2 O2 Flow FiO2 Mean Ox Delivery Rate 10/31 0429 98.2 56 18 122/61 97 Room Air 10/31 0220 98.2 78 16 131/68 10/31 0215 98.2 78 16 131/68 100 Room Air 10/31 0005 99 Room Air 10/30 2341 98.2 85 18 163/85 98 Room Air ED Intake and Output 10/31 0000 10/30 1200 Intake Total Output Total Balance Patient 141 lb Weight Weight Reported by Patient Measurement Method Allergies Coded Allergies: No Known Allergies (10/15/17) Reconcile Medications Aspirin (Aspirin*) 325 MG TABLET 325 MG PO DAILY HEART Atorvastatin Calcium 80 MG TABLET 80 MG PO 1700 CHOLESTEROL Clopidogrel Bisulfate (Plavix) 75 MG TABLET 75 MG PO DAILY HEART Cyanocobalamin (Vitamin B-12) 1,000 MCG TABLET 1 TAB PO DAILY VITAMIN SUPPORT (Reported) Metoprolol Tartrate 25 MG TABLET 1 TAB PO BID HEART Nitroglycerin (Nitro-Bid) 2 % OINT...G. 0.5 GM TOP Q6 PRN CHEST PAIN [place]-3 Fatty Acids/Fish Oil (Fish Oil 1,000 MG Capsule) 340 MG-1,000 MG CAPSULE 1 CAP PO DAILY SUPPLEMENT (Reported) Triage Note: PT TO ED C/O PALPITATIONS THAT STARTED 30 MINUTES PRIOR TO ARRIVAL "I STILL FEEL IT, IT'S STILL THERE" PT NSR HR 76 WITH OCCASIONAL PVS'S. PVC'S APPEAR TO BE NON PERFUSING. DR WADDELL AT BEDSIDE TO EVAL PT. PT ANXIOUS. DENIES CHEST PAIN, DENIES SOB Triage Nurses Notes Reviewed? yes Onset: Abrupt Duration: hour(s): (1), continues in ED, intermittent Quality/Severity: moderate Location: substernal Radiation: no radiation HPI: Patient presents for evaluation of palpitations that began about 1 hour prior to arrival. She denies any associated chest pain or dyspnea. She denies any prior episodes of heart palpitations. She states she feels well but a little anxious because of the possible implications. She was recently admitted for a heart attack and had cardiac stenting performed by Dr. Jama. She was evaluated by Dr. Jama on Sunday and was prescribed antihypertensive medications. Nothing seems to make her palpitations better. Nothing seems to make them worse. Past History Travel History Traveled to [place] past 21 day No Medical History Any Pertinent Medical History? see below for history Cardiovascular: hypertension Gastrointestinal: GERD Renal: nephrectomy History of MRSA: No History of VRE: No History of CDIFF: No Surgical History Surgical History: nephrectomy Psychosocial History Who do you live with Patient/Self Services at Home None What is your primary language Nepali Tobacco Use: Quit >30 days ago ETOH Use: denies use Illicit Drug Use: denies illicit drug use Family History Hx Contributory? No Review of Systems Review of Systems Constitutional: Reports: no symptoms. EENTM: Reports: no symptoms. Respiratory: Reports: no symptoms. Cardiovascular: Reports: see HPI. GI: Reports: no symptoms. Genitourinary: Reports: no symptoms. Musculoskeletal: Reports: no symptoms. Skin: Reports: no symptoms. Neurological/Psychological: Reports: no symptoms. Hematologic/Endocrine: Reports: no symptoms. Immunologic/Allergic: Reports: no symptoms. All Other Systems: Reviewed and Negative Physical Exam Physical Exam Cardiovascular: SEE BELOW Comments: Gen.: Well-nourished, well-developed, no acute respiratory distress. Head: Normocephalic, atraumatic. Eyes: Normal inspection bilaterally Ears: Normal inspection bilaterally Nose: Normal inspection Throat/mouth : Moist mucosa Neck: Supple, full range of motion, no goiter Heart: Slightly IRRegular rate and rhythm, no murmurs rubs or gallops Lungs: Clear to auscultation bilaterally with normal air entry Chest: Nontender Back: Normal range of motion Abdomen: Soft, nontender, nondistended, normal bowel sounds Extremities: Normal range of motion grossly, equal radial pulses, no cyanosis clubbing or edema Neurologic: Cranial nerves grossly intact, speech is clear Skin: warm and dry Psychiatric: Calm, cooperative, no apparent delusions or hallucinations Core Measures ACS in differential dx? No CVA/TIA Diagnosis No Sepsis Present: No Sepsis Focused Exam Completed? No Progress Differential Diagnosis: ELECTROLYTE ABNORMALITY, THYROID DISEASE, POST mi DYSRHYTHMIA, ANXIETY Plan of Care: Orders Procedure Date/time Status TROPONIN LEVEL 10/31 414 Complete EKG 10/31 414 Active Telemetry/Card Room Manager 10/31 14 Active THYROID STIMULATING HORMONE 10/31 14 Complete TROPONIN LEVEL 10/31 14 Complete MAGNESIUM 10/31 14 Complete CBC WITHOUT DIFFERENTIAL 10/31 14 Complete CALCIUM 10/31 14 Complete BASIC METABOLIC PANEL 10/31 14 Complete EKG 10/30 2326 Active Laboratory Tests 10/31/17 0422: Troponin I < 0.01 10/31/1734: Anion Gap 14, Estimated GFR > 60, BUN/Creatinine Ratio 27.5 H, Glucose 122 H, Calcium 10.1, Magnesium 1.9, Troponin I < 0.01, TSH 2.500, CBC w Diff NO MAN DIFF REQ, RBC 4.10 L, MCV 87.3, MCH 29.3, MCHC 33.6, RDW 12.9, MPV 7.8, Gran % 64.0, Lymphocytes % 27.0, Monocytes % 6.9, Eosinophils % 1.8, Basophils % 0.3, Absolute Granulocytes 6.8 H, Absolute Lymphocytes 2.9, Absolute Monocytes 0.7 H, Absolute Eosinophils 0.2, Absolute Basophils 0 Diagnostic Imaging: Discussed w/RAD: Radiology Read. CXR Impression: PATIENT: JOANN HARRISON PRESENT AGE: 72 PATIENT ACCOUNT NO: [id number] : 44 LOCATION: [facility] ORDERING PHYSICIAN: Tee Waddell MD SERVICE DATE: 10/31/17 EXAM TYPE: RAD - XRY-CHEST XRAY, TWO VIEWS EXAMINATION: XR CHEST CLINICAL INFORMATION: Palpitations. COMPARISON: Chest x-ray October 15, 2017 TECHNIQUE: 2 views of the chest were obtained. FINDINGS: Lungs are clear. No pulmonary vascular congestion. There is no pleural effusion. The heart size is normal. The cardiac and mediastinal contours are normal. There are multilevel degenerative changes of dorsal spine. IMPRESSION: Unremarkable examination. DICTATED BY: Jasbir Vergara MD DATE/TIME DICTATED:10/31/1737 TOOL REPAIR TECHNICIAN:FIDEL DATE/TIME TRANSCRIBED:37 CONFIDENTIAL, DO NOT COPY WITHOUT APPROPRIATE AUTHORIZATION. < Electronically signed in Other Vendor System> SIGNED BY: Jasbir Vergara MD 41 Initial ED EKG: NSR, rate (82), no ST T wave changes Prior EKG: changed (T WAVE INVERSIONS LATERALLY) Repeat EKG: unchanged Comments: 10/31/2017 12:51:45 AM D/W JACK WHO SUGGESTS INCREASING METOPROLOL TO 50 BID. 10/31/2017 1:42:42 AM I have updated Joann on her test results. She has corrected her current dose of metoprolol. She states that she is taking [address] Jama wished to double her dose so I will have her take 25 mg twice daily. She is also requesting Tums for a bit of an upset stomach. Departure Departure Disposition: HOME OR SELF CARE Condition: Stable Clinical Impression Primary Impression: PVCs (premature ventricular contractions) Referrals: Jadon Wheatley MD (PCP/Family) Additional Instructions: Increase your metoprolol to 25 mg twice a day. Follow-up with Dr. Jama this week for reevaluation. Notify your primary care physician of this emergency department visit and treatment plan. Return if any concerns or sudden worsening. Thank you for choosing the [facility] Emergency Department for your care. It was a pleasure to serve you today. Tee Waddell M.D. [facility] Departure Forms: Customer Survey General Discharge Information Critical Care Note Critical Care Note Critical Care Time: non-applicable
--- NOTE | 2017-10-31 00:42 | RADIOLOGY REPORT ---
EXAMINATION: XR CHEST CLINICAL INFORMATION: Palpitations. COMPARISON: Chest x-ray October 15, 2017 TECHNIQUE: 2 views of the chest were obtained. FINDINGS: Lungs are clear. No pulmonary vascular congestion. There is no pleural effusion. The heart size is normal. The cardiac and mediastinal contours are normal. There are multilevel degenerative changes of dorsal spine. IMPRESSION: Unremarkable examination.
[2017-10-31 00:44] LABS: ABSOLUTE BASOPHIL COUNT 0 /CUMM (0.0-0.2); ABSOLUTE EOSINOPHIL COUNT 0.2 /CUMM (0.0-0.7); ABSOLUTE GRANULOCYTE CT 6.8 /CUMM (1.4-6.5); ABSOLUTE LYMPH COUNT 2.9 /CUMM (1.2-3.4); ABSOLUTE MONOCYTE COUNT 0.7 /CUMM (0.10-0.60); BASOPHIL % 0.3 % (0.0-2.0); EOSINOPHIL % 1.8 % (0-5); HEMATOCRIT 35.8 % (37-47); MEAN CORPUSCULAR HGB 29.3 PG (27.0-31.0); MEAN CORPUSCULAR HGB CONC 33.6 G/DL (33.0-37.0); MEAN CORPUSCULAR VOLUME 87.3 FL (81.0-99.0); MEAN PLATELET VOLUME 7.8 FL (7.4-10.4); PLATELET COUNT 360 /CUMM (130-400); RBC DISTRIBUTION WIDTH 12.9 % (11.5-14.5); WHITE BLOOD CELL COUNT 10.6 /CUMM (4.8-10.8)
[2017-10-31 06:02] VITALS: BP 115/58
== END 2017-10-31 06:30 ==
LOC: ERH 23:25
PROVIDERS: Emergency Medicine
DX: I49.3 Ventricular premature depolarization (principal)
CPT/HCPCS: 71046; 93005; 93010